=== PATIENT | male | born 1990 | race African-American/Black ===

== ENCOUNTER 2019-01-09 15:43 | Emergency (ER) | payer OTHER ==
[~2019-01-09] VITALS: Ht 182.9 cm; Wt 69.2 kg
[~2019-01-09 15:43] MED LIST: ACYC400T2 PO; ERYT1OIN6 LEFT EYE
[2019-01-09 15:49] VITALS: Ht 182.9 cm; Wt 69.2 kg
[2019-01-09] MEDS ORDERED: IBUP-1542 PO (16:39)
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
[2019-01-09 19:00] VITALS: BP 128/74; PULSE 76; RESP 16
== END 2019-01-09 19:00 | disposition home or self-care (01) ==
LOC: FTE 15:43
DX: N50.812 Left testicular pain (principal); M54.5 Low back pain; R07.81 Pleurodynia; R20.0 Anesthesia of skin; M79.89 Other specified soft tissue disorders; R10.12 Left upper quadrant pain; Z87.891 Personal history of nicotine dependence
CPT/HCPCS: 36415; 71100; 76870; 80053; 81001; 83690; 85025

== ENCOUNTER 2019-01-10 09:36 | Emergency (ER) | payer OTHER ==
[~2019-01-10] VITALS: Ht 182.9 cm; Wt 69.8 kg
[~2019-01-10 09:36] MED LIST changes: +IBUP-1542 PO
[2019-01-10 09:51] VITALS: Ht 182.9 cm; Wt 69.8 kg
[2019-01-10] MEDS ORDERED: CEFTRIAXONE 250 MG INJ IM ONE (11:00)
[2019-01-10] MEDS ORDERED: AZITHROMYCIN 500 MG TAB PO ONE (11:00)
[2019-01-10] MEDS ORDERED: LIDOCAINE 1% (MPF) 5 ML VIAL INJ ONE (11:00)
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
== END 2019-01-10 12:05 | disposition home or self-care (01) ==
LOC: FTE 09:36
DX: N45.1 Epididymitis (principal); F17.210 Nicotine dependence, cigarettes, uncomplicated
CPT/HCPCS: 87591; 96372; 99284; J0696